=== PATIENT | male | born 1950 | race Caucasian/White ===

== ENCOUNTER 2020-12-05 08:41 | Outpatient (CLI) | payer MEDICARE, OTHER | END 2020-12-05 08:42 | disposition home or self-care (01) | LOC: CSHMRI 08:41 | PROVIDERS: ATTEND Specialist | DX: M51.16 Intervertebral disc disorders with radiculopathy, lumbar region (principal); M47.816 Spondylosis without myelopathy or radiculopathy, lumbar region | CPT/HCPCS: 72148 ==

== ENCOUNTER 2023-05-21 09:32 | Outpatient (CLI) | payer MEDICARE, OTHER | END 2023-05-21 09:33 | disposition home or self-care (01) | LOC: CSHRAD 09:32 | PROVIDERS: ATTEND Family Medicine | DX: M47.12 Other spondylosis with myelopathy, cervical region (principal); Z98.890 Other specified postprocedural states | CPT/HCPCS: 72040 ==

== ENCOUNTER 2023-06-26 10:47 | Outpatient (CLI) | payer MEDICARE, OTHER | END 2023-06-26 10:48 | disposition home or self-care (01) | LOC: CSHRAD 10:47 | PROVIDERS: ATTEND Neurological Surgery | DX: M47.816 Spondylosis without myelopathy or radiculopathy, lumbar region (principal); Z98.890 Other specified postprocedural states; M47.812 Spondylosis without myelopathy or radiculopathy, cervical region | CPT/HCPCS: 72040 ==